=== PATIENT | male | born 2000 | race Caucasian/White ===

== ENCOUNTER 2021-08-30 17:43 | Emergency (ER) | payer OTHER ==
[~2021-08-30] VITALS: Ht 172.7 cm; Wt 85.0 kg
[2021-08-30] MEDS ORDERED: IOHEXOL-300 100 ML BOTTLE ONE ×2 (18:59→22:18)
[2021-08-30] MEDS ORDERED: ACETAMINOPHEN 325MG TABLET PO ONE ×2 (19:00→23:15)
[2021-08-30 20:49] LABS: CHLORIDE 107 mEq/L (98-107); HEMATOCRIT. 42.1 % (42.0-52.0); HEMOGLOBIN. 14.5 g/dL (14.0-18.0); MEAN CORPUSCULAR HEMOGLOBIN 30.5 pg (28.0-32.0); MEAN CORPUSCULAR VOLUME 88.3 fL (80.0-94.0); MEAN PLATELET VOLUME 11.1 fl (7.4-10.4); PLATELET 245 x1000/uL (130-400); RED BLOOD CELL COUNT 4.77 mill/uL (4.7-6.1); RED CELL DISTRIBUTION WIDTH 12.8 % (11.6-14.6)
[2021-08-30 21:11] LABS: PLATELET ESTIMATE NORMAL
[2021-08-30] MEDS ORDERED: MORPHINE SULFATE 4 MG/ML CPJ (NOT FOR IM USE) IV ONE (23:45)
[2021-08-30] MEDS ORDERED: SODIUM CHLORIDE 0.9% 1,000 ML IV ONE (23:45)
[2021-08-30] MEDS ORDERED: MORPHINE SULFATE 4 MG/ML CPJ (NOT FOR IM USE) IV NR (23:45)
[2021-08-31] MEDS ORDERED: HYDROCODONE/ACETAMINOPHEN 10/325MG TABLET PO PRN (06:45)
[2021-08-31 13:05] VITALS: BP 127/77
== END 2021-08-30 21:48 | disposition left against medical advice (07) ==
LOC: ER 17:43 → CANBEDREQ 08-31 16:21
DX: S30.811A Abrasion of abdominal wall, initial encounter (principal); M25.531 Pain in right wrist; F17.210 Nicotine dependence, cigarettes, uncomplicated; V43.52XA Car driver injured in collision with other type car in traffic accident, initial encounter; Y93.89 Activity, other specified; Y92.488 Other paved roadways as the place of occurrence of the external cause
CPT/HCPCS: 36415; 73110; 74177; 80053; 85025; 96374; 99285; J2270; J7030; Q9967; 96361; 96376